=== PATIENT | female | born 1975 | race Caucasian/White ===

== ENCOUNTER 2023-10-25 07:43 | Day surgery (SDC) | payer BC ==
[~2023-10-25] VITALS: Ht 172.7 cm; Wt 100.9 kg
[2023-10-25 09:28] LABS: HCG,QUAL RESULT NEGATIVE (NEGATIVE)
[2023-10-25] MEDS ORDERED: MUPIROCIN 2% TOPICAL OINTMENT 22 GM ONE (10:50)
[2023-10-25] MEDS ORDERED: ACETAMINOPHEN I.V. 1000 MG 100 ML IV ONE (11:17)
[2023-10-25] MEDS ORDERED: METOCLOPRAMIDE HCL 10 MG/2 ML VIAL IVP PRN (11:45)
[2023-10-25] MEDS ORDERED: MEPERIDINE HCL/PF 25 MG/ML DISP.SYRIN IVP PRN (11:45)
[2023-10-25] MEDS ORDERED: HYDROmorphone 1 MG/ML INJ. CARTRIDGE IVP PRN (11:45)
[2023-10-25] MEDS ORDERED: LR 1,000 ML IV SCH (11:45)
[2023-10-25] MEDS ORDERED: HYDROmorphone 1 MG/ML INJ. CARTRIDGE ONE (15:13)
[2023-10-25] MEDS: HYDROmorphone 1 MG/ML INJ. CARTRIDGE IVP PRN (15:15)
[2023-10-25 16:40] VITALS: O2SAT 97
[2023-10-25 17:16] VITALS: BP_SYST 120; PULSE 80; RESP 20
== END 2023-10-25 16:30 | disposition home or self-care (01) ==
LOC: SDS 07:43 → SMU 07:44 → SDS 16:30
PROVIDERS: ATTEND Otolaryngology
DX: D38.5 Neoplasm of uncertain behavior of other respiratory organs (principal); J34.89 Other specified disorders of nose and nasal sinuses; K21.9 Gastro-esophageal reflux disease without esophagitis; J34.2 Deviated nasal septum; F33.9 Major depressive disorder, recurrent, unspecified; E66.3 Overweight; J33.9 Nasal polyp, unspecified; I10 Essential (primary) hypertension; J45.909 Unspecified asthma, uncomplicated; Z88.6 Allergy status to analgesic agent; Z68.33 Body mass index [BMI] 33.0-33.9, adult
CPT/HCPCS: 31288; 31267; 30520; 30140; 84703; 88304; 88305; 88311; 31296; J3490; J1100; J3465; J2405; J2704; J3010; J1170; J7120; C1726; J0131